=== PATIENT | male | born 1990 | race Asian ===

== ENCOUNTER 2018-06-15 08:31 | Emergency (ER) | payer OTHER ==
[~2018-06-15] VITALS: Ht 177.8 cm; Wt 97.5 kg
[2018-06-15] MEDS ORDERED: ACETAMINOPHEN 325 MG TAB PO ONE (09:15)
[2018-06-15] MEDS ORDERED: DEXAMETHASONE SOD PHOS 10 MG/1 ML VIAL IM ONE (09:15)
--- NOTE | 2018-06-15 09:53 | Diagnostic Imaging Report ---
SHOULDER 2+VW RT - HOPD - 2 views HISTORY: Pain COMPARISON: None available. FINDINGS: See impression. IMPRESSION: No evidence of acute displaced fracture or dislocation of the right shoulder. 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 Signed by: Dr. Jamil Wilson MD on 06/15/2018 9:50 AM
[2018-06-15 10:43] VITALS: BP 115/62
== END 2018-06-15 10:45 | disposition home or self-care (01) ==
LOC: FSED 08:31
DX: M25.511 Pain in right shoulder (principal); M75.91 Shoulder lesion, unspecified, right shoulder
CPT/HCPCS: 73030; 99283; J1100